=== PATIENT | female | born 1955 | race Two or more races ===

== ENCOUNTER 2020-08-22 09:16 | Outpatient (CLI) | payer OTHER ==
[~2020-08-22 09:16] MED LIST: NAPROXEN SODIU550 MG PO
== END 2020-08-22 09:19 | disposition home or self-care (01) ==
LOC: SONOGRAMA 09:16
PROVIDERS: ATTEND Pathology Anatomic Pathology & Clinical Pathology
DX: E04.1 Nontoxic single thyroid nodule (principal)

== ENCOUNTER 2024-05-28 10:10 | Outpatient (CLI) | payer OTHER | END 2024-05-28 10:13 | disposition home or self-care (01) | LOC: SONOGRAMA 10:10 | PROVIDERS: ATTEND Pathology Anatomic Pathology & Clinical Pathology | DX: D34 Benign neoplasm of thyroid gland (principal); E04.2 Nontoxic multinodular goiter ==